=== PATIENT | female | born 1990 ===

== ENCOUNTER 2018-12-09 23:01 | Emergency (ER) | payer OTHER ==
[~2018-12-09] VITALS: Ht 157.5 cm; Wt 84.4 kg
[2018-12-09 23:03] VITALS: BP 132/74; PULSE 88; RESP 18; Ht 157.5 cm; Wt 84.4 kg
[2018-12-10] MEDS ORDERED: MAGNESIUM CITRATE 300 ML BTL PO ONE (00:30)
== END 2018-12-10 02:19 | disposition home or self-care (01) ==
LOC: FTE 23:01
DX: K59.00 Constipation, unspecified (principal)
CPT/HCPCS: Z7502; Z7610; 99282